=== PATIENT | male | born 2000 | race Caucasian/White ===

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

== ENCOUNTER 2021-01-25 16:38 | Emergency (ER) | payer OTHER ==
[2021-01-25] MEDS ORDERED: AMOX TR/POT CLAV 875MG/125MG TABLETS (FP) PO ONE (16:52)
[2021-01-25 16:59] VITALS: BP 112/55; PULSE 79; TEMP 99; BMI 33.5
[2021-01-25] MEDS ORDERED: AMOX TR/POT CLAV 875MG/125MG TABLETS (FP) ONE (17:16)
== END 2021-01-25 17:31 | disposition home or self-care (01) ==
LOC: FER 16:38
DX: S61.441A Puncture wound with foreign body of right hand, initial encounter (principal)
CPT/HCPCS: 99283-25

== ENCOUNTER 2024-04-04 17:37 | Emergency (ER) | payer SELFPAY ==
[2024-04-04 17:50] VITALS: BP 144/80; PULSE 99; RESP 20; TEMP 98.2; BMI 23.7
[2024-04-04] MEDS: SODIUM CHLORIDE 1,000 ML IV STA (18:34)
[2024-04-04] MEDS: ONDANSETRON 4 MG/2 ML VIAL IVPUSH ONE (18:34)
[2024-04-04] MEDS: ALBUTEROL SO4 0.083% IH SOL 2.5 MG/3 ML VIAL.NEB. NEB ONE (18:34)
[2024-04-04] MEDS: predniSONE 20 MG TABLET (UD) PO ONE (18:34)
[2024-04-04] MEDS ORDERED: predniSONE 20 MG TABLET (UD) ONE (18:36)
[2024-04-04] MEDS ORDERED: ONDANSETRON 4 MG/2 ML VIAL ONE (18:36)
[2024-04-04] MEDS ORDERED: ALBUTEROL SO4 0.083% IH SOL 2.5 MG/3 ML VIAL.NEB. NEB ONE (18:36)
[2024-04-04 18:39] LABS: HEMATOCRIT 45.3 % (35.4-49); HEMOGLOBIN 14.9 G/dL (11.7-16.9); MCH 27.4 pg (25.7-33.7); MCHC 32.9 g/dl (32.0-35.9); MEAN CELL VOLUME 83.2 fl (80-96); MEAN PLT VOLUME 8.4 fl (7.5-11.1); PLATELET COUNT 174.5 10^3/uL (134-434); RBC 5.44 10^6/uL (4.00-5.60); RDW 14.7 % (11.9-15.9); WHITE BLOOD COUNT 7.1 10^3/uL (4.0-10.8)
[2024-04-04 19:01] LABS: PLATELET ESTIMATE ADEQUATE
[2024-04-04 19:11] LABS: ANION GAP 9 mmol/L (4-13); CALCIUM 9.8 mg/dl (8.5-10.1); CHLORIDE 102 mmol/L (98-107); CO2 26 mmol/L (21-32); CREATININE 0.9 mg/dl (0.6-1.3); GLUCOSE,RANDOM 97 mg/dl (74-106); POTASSIUM 3.6 mmol/L (3.5-5.1); SODIUM 137 mmol/L (136-145)
== END 2024-04-04 19:21 | disposition home or self-care (01) ==
LOC: FER 17:37
PROC: 3E033GC Introduction of Other Therapeutic Substance into Peripheral Vein, Percutaneous Approach (ICD-10-PCS; principal; 2024-04-04)
PROC: 3E0337Z Introduction of Electrolytic and Water Balance Substance into Peripheral Vein, Percutaneous Approach (ICD-10-PCS; 2024-04-04)
PROC: 3E0F7GC Introduction of Other Therapeutic Substance into Respiratory Tract, Via Natural or Artificial Opening (ICD-10-PCS; 2024-04-04)
DX: J45.909 Unspecified asthma, uncomplicated (principal); R06.02 Shortness of breath; R11.10 Vomiting, unspecified; Z20.822 Contact with and (suspected) exposure to COVID-19
CPT/HCPCS: 0241U-QW; 36415; 71046-TC-FY; 80048; 85027; 99284-25